=== PATIENT | male | born 2000 | race Caucasian/White ===

== ENCOUNTER 2018-08-17 11:40 | Emergency (ER) | payer BC ==
[2018-08-17 11:47] VITALS: BP 121/64
--- NOTE | 2018-08-17 11:54 | EDPHY ---
H & P Stated Complaint: swelling of r eyelid/denies vision changes/benadryl/zyrtec have helped some Time Seen by Provider: 08/17/18 11:51 HPI/ROS: HPI: This is a 17-year-old male who presents with Chief Complaint: swelling of r eyelid/denies vision changes/benadryl/zyrtec have helped some Location: Right upper eyelid Quality: Swelling Duration: 48 hr Signs and Symptoms: no fever, no nausea, no vomiting, no photophobia, no noise sensitivity, no neck stiffness, no ear pain, no tinnitus, no nasal congestion, no sinus pressure, no weakness, no radiation, no aura, no eye discharge, no eye pain, no vision changes Timing: Worsening Severity: Mild Context: Patient is a student at [employer], presents with 48 hr history worsening right upper eyelid swelling but no redness. He reports that his roommate was treated for pinkeye approximately 5 days ago. He used his roommate eyedrops 3 days ago. He was seen at the [facility] yesterday and given steroid eyedrops and advised to take Benadryl and Zyrtec daily. Patient reports that he has been following the directions but no improvement in the eye and actually 50% worsening of his upper eyelid right side swelling but no redness, warmth, tenderness. Denies any vision changes, eye discharge, itchiness. Modifying Factors: See above Comment: ROS: A comprehensive 10 system review of systems is otherwise negative aside from elements mentioned in the history of present illness. MEDICAL/SURGICAL/SOCIAL HISTORY: Medical history: Generally healthy. Does not take any regular medications. Surgical history: Denies Social history: Student at [employer]. Alcohol use socially. Family history noncontributory. CONSTITUTIONAL: Well-developed, well-nourished, teenage white male, awake and alert, no obvious distress Visual Acuity: noted from Nurse's notes. Pupils: equal round and reactive to light. EOMI Lids: Moderate right upper eyelid edema or swelling; no erythema, no fluctuance Skin: no proptosis, no periorbital erythema or swelling, no vesicles Conjunctivae: not injected, no discharge NEUROLOGICAL: no focal neuro deficits. GCS 15. Cranial nerves 2-12 grossly intact. SKIN: Warm and dry, no erythema. no rash. Good capillary refill. Source: Patient Exam Limitations: No limitations - Personal History Current Tetanus Diphtheria and Acellular Pertussis (TDAP): Yes - Medical/Surgical History Hx Asthma: No Hx Chronic Respiratory Disease: No Hx Diabetes: No Hx Cardiac Disease: No Hx Renal Disease: No Hx Cirrhosis: No Hx Alcoholism: No Hx HIV/AIDS: No Hx Splenectomy or Spleen Trauma: No Other PMH: denies - Social History Smoking Status: Never smoked Constitutional: Initial Vital Signs Temperature (C) 36.6 C 08/17/18 11:44 Heart Rate 69 08/17/18 11:44 Respiratory Rate 17 08/17/18 11:44 Blood Pressure 121/64 H 08/17/18 11:44 O2 Sat (%) 98 08/17/18 11:44 O2 Delivery Mode Room Air Allergies/Adverse Reactions: No Known Allergies Allergy (Unverified 08/17/18 11:43) Home Medications: Medication Instructions Recorded Amoxicillin/Clavulanate Pot 875 mg PO BID #14 tab 08/17/18 [Augmentin 875 MG TAB (*)] Benadryl 08/17/18 ZYRTEC 08/17/18 predniSONE 50 mg PO DAILY 3 Days tablet 08/17/18 Medical Decision Making ED Course/Re-evaluation: Vital signs reviewed and stable upon arrival. Visual acuity normal. No signs of periorbital cellulitis/conjunctivitis Will give Augmentin and 3 day burst of steroids with continue antihistamine use [facility] follow-up This patient was seen under the supervision of my secondary supervising physician. I evaluated care for this patient independently. Discussed this patient with Dr. Bethea who did not see the patient. Differential Diagnosis: Differential diagnosis includes but is not limited to stye, periorbital cellulitis, conjunctivitis. Departure - Departure Disposition: Home, Routine, Self-Care Clinical Impression: Swelling of right upper eyelid Condition: Good Instructions: Orbital Cellulitis (ED) Additional Instructions: Take Tylenol 650 mg every 4 hours and/or Ibuprofen 600 mg every 8 hours with food as needed for pain. Apply ice for 30 minutes at a time; 2-3 times per day for the next 1-2 days. Continue to take [id number] antihistamines daily as needed. Take antibiotic as directed. Do not skip a dose. Take steroids as directed Please refrain from touching your face and eyes. Wash face twice daily with soap and water. If Symptoms do not improve over the next 72 hr, follow-up at the [facility] clinic. Referrals: VALENCIA Davis,. [Clinic] - As per Instructions Prescriptions: Amoxicillin/Clavulanate Pot [Augmentin 875 MG TAB (*)] 875 mg PO BID #14 tab predniSONE 50 mg PO DAILY 3 Days tablet
== END 2018-08-17 12:13 | disposition home or self-care (01) ==
DX: H02.841 Edema of right upper eyelid (principal)